=== PATIENT | female | born 1990 | race American Indian/Alaskan Native ===

== ENCOUNTER 2017-07-13 21:42 | Emergency (ER) | payer SELFPAY ==
[2017-07-13] MEDS ORDERED: ASPIRIN PO ONE (22:19)
[2017-07-13 23:05] LABS: Basophils # (Auto) 0.1 K/mm3 (0.0-0.1); Basophils % (Auto) 1.3 % (0.0-1.8); Eosinophils % (Auto) 0.4 % (0.0-4.3); Hematocrit 33.7 % (30.3-42.9); Hemoglobin 11.1 gm/dl (10.1-14.3); Lymphocytes # (Auto) 1.6 K/mm3 (1.2-5.4); Lymphocytes % (Auto) 30.5 % (13.4-35.0); Mean Corpuscular HGB Conc 33 % (30-34); Mean Corpuscular Hemoglobin 29 pg (28-32); Mean Corpuscular Volume 88 fl (79-97); Monocytes # (Auto) 0.5 K/mm3 (0.0-0.8); Monocytes % (Auto) 9.6 % (0.0-7.3); Platelet Count 210 K/mm3 (140-440); Red Blood Count 3.84 M/mm3 (3.65-5.03); Red Cell Distribution Width 14.1 % (13.2-15.2)
[2017-07-13 23:15] LABS: BUN/Creatinine Ratio 30; Blood Urea Nitrogen 12 mg/dL (7-17); Calcium 8.5 mg/dL (8.4-10.2); Hemolysis Index 114
[2017-07-13 23:25] VITALS: BP 124/77
--- NOTE | 2017-07-13 23:35 | Emergency Department Report ---
ED General Adult HPI - General Chief complaint: Chest Pain Stated complaint: CHEST PAINS Time Seen by Provider: 07/13/17 23:10 Source: patient Mode of arrival: Ambulatory Limitations: No Limitations - History of Present Illness Initial comments: Patient presents to emergency department for chest pain that started after argument with her sister. Patient describes the chest pain as sharp and located throughout her entire chest. Patient denies headache, abdominal pain, fever. Patient denies anything making the chest pain better or worse - Related Data Previous Rx's Medication Instructions Recorded Last Taken Type Ciprofloxacin HCl [Ciprofloxacin 500 mg PO BID #14 tablet 09/27/14 Unknown Rx TAB] metroNIDAZOLE [Flagyl TAB] 500 mg PO BID #14 tablet 09/27/14 Unknown Rx Ondansetron [Zofran Odt] 4 mg PO Q8H PRN #10 tab.rapdis 12/25/14 Unknown Rx Docusate Sodium [Colace] 100 mg PO BID PRN #16 capsule 04/02/15 Unknown Rx Magnesium Citrate [Citrate of 300 ml PO ONCE #1 bottle 04/02/15 Unknown Rx Magnesia] Sulfamethoxazole/Trimethoprim 1 each PO BID #10 tablet 04/02/15 Unknown Rx [Bactrim DS TAB] Allergies Allergy/AdvReac Type Severity Reaction Status Date / Time No Known Allergies Allergy Verified 03/25/14 04:01 ED Review of Systems ROS: Stated complaint: CHEST PAINS Other details as noted in HPI Constitutional: denies: chills, fever Eyes: denies: eye pain, eye discharge, vision change ENT: denies: ear pain, throat pain Respiratory: denies: cough, shortness of breath, wheezing Cardiovascular: chest pain. denies: palpitations Endocrine: no symptoms reported Gastrointestinal: denies: abdominal pain, nausea, diarrhea Genitourinary: denies: urgency, dysuria, discharge Musculoskeletal: denies: back pain, joint swelling, arthralgia Skin: denies: rash, lesions Neurological: denies: headache, weakness, paresthesias Psychiatric: denies: anxiety, depression Hematological/Lymphatic: denies: easy bleeding, easy bruising ED Past Medical Hx - Past Medical History Hx Hypertension: No Hx Diabetes: No Hx Deep Vein Thrombosis: No Hx Renal Disease: Yes (ARF IN SEPTEMBER 2014) Hx Sickle Cell Disease: No Hx Headaches / Migraines: Yes (when ) Hx Seizures: No Hx Asthma: No Hx COPD: No Additional medical history: preeclampsia - Surgical History Past Surgical History?: No - Social History Smoking Status: Never Smoker Substance Use Type: Marijuana - Medications Home Medications: Home Medications Medication Instructions Recorded Confirmed Last Taken Type Ciprofloxacin HCl [Ciprofloxacin 500 mg PO BID #14 tablet 09/27/14 Unknown Rx TAB] metroNIDAZOLE [Flagyl TAB] 500 mg PO BID #14 tablet 09/27/14 Unknown Rx Ondansetron [Zofran Odt] 4 mg PO Q8H PRN #10 tab.rapdis 12/25/14 Unknown Rx Docusate Sodium [Colace] 100 mg PO BID PRN #16 capsule 04/02/15 Unknown Rx Magnesium Citrate [Citrate of 300 ml PO ONCE #1 bottle 04/02/15 Unknown Rx Magnesia] Sulfamethoxazole/Trimethoprim 1 each PO BID #10 tablet 04/02/15 Unknown Rx [Bactrim DS TAB] ED Physical Exam - General Limitations: No Limitations General appearance: alert, in no apparent distress, anxious - Head Head exam: Present: atraumatic, normocephalic - Eye Eye exam: Present: normal appearance - ENT ENT exam: Present: mucous membranes moist - Neck Neck exam: Present: normal inspection - Respiratory Respiratory exam: Present: normal lung sounds bilaterally. Absent: respiratory distress - Cardiovascular Cardiovascular Exam: Present: normal rhythm, tachycardia (103 bpm). Absent: systolic murmur, diastolic murmur, rubs, gallop - GI/Abdominal GI/Abdominal exam: Present: soft, normal bowel sounds - Extremities Exam Extremities exam: Present: normal inspection - Back Exam Back exam: Present: normal inspection - Neurological Exam Neurological exam: Present: alert, oriented X3 - Psychiatric Psychiatric exam: Present: normal affect, normal mood - Skin Skin exam: Present: warm, dry, intact, normal color. Absent: rash ED Course Vital Signs 07/13/17 07/13/17 07/13/17 22:13 23:18 23:19 Temperature 98.3 F Pulse Rate 106 H 101 H 95 H Respiratory 18 15 Rate Blood Pressure 130/80 O2 Sat by Pulse 100 100 100 Oximetry 07/13/17 07/14/17 23:20 00:15 Temperature Pulse Rate 98 H Respiratory 16 Rate Blood Pressure 124/77 O2 Sat by Pulse 100 98 Oximetry ED Medical Decision Making - Lab Data Result diagrams: 07/13/17 22:36 07/13/17 22:36 - EKG Data EKG shows normal: sinus rhythm Rate: tachycardia - EKG Data Interpretation: no acute changes - Medical Decision Making Patient does endorse being a smoker Discussed results with patient and her guest Informed patient that her hCG came back positive for . Patient stated that she was not aware that she was . Patient denies any vaginal bleeding or discharge Discussed doing further testing such as a VQ scan but the patient politely declined Critical care attestation.: If time is entered above; I have spent that time in minutes in the direct care of this critically ill patient, excluding procedure time. ED Disposition Clinical Impression: Nonspecific chest pain, Disposition: DC-01 TO HOME OR SELFCARE Is pt being admited?: No Does the pt Need Aspirin: No Condition: Stable Instructions: Noncardiac Chest Pain (ED), (ED) Referrals: YADIRA BROOKS MD [Primary Care Provider] - 3-5 Days Time of Disposition: 01:13
[2017-07-14] MEDS ORDERED: TYLENOL #3 PO ONE (00:35)
[2017-07-14] MEDS ORDERED: ZOFRAN ODT PO ONE (00:36)
--- NOTE | 2017-07-17 15:33 | XRay Report ---
ROUTINE CHEST, TWO VIEWS: HISTORY: chest pain. The trachea, heart, mediastinal contour, lung perez and bony thorax are unremarkable. IMPRESSION: Unremarkable chest x-ray.
== END 2017-07-14 01:34 | disposition home or self-care (01) ==
LOC: ED 21:42
DX: O26.891 Other specified pregnancy related conditions, first trimester (principal); R07.9 Chest pain, unspecified; F12.10 Cannabis abuse, uncomplicated; Z3A.01 Less than 8 weeks gestation of pregnancy
CPT/HCPCS: 36415; 71045; 71046; 80048; 84484; 84703; 85025; 93005; 93010; 99284; Q0162